=== PATIENT | male | born 1990 | race African-American/Black ===

== ENCOUNTER 2018-10-28 00:07 | Emergency (ER) | payer MEDICAID ==
[2018-10-28] MEDS ORDERED: NICOTINE 21 MG/24 HR PATCH TD ONE (01:03)
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
[2018-10-28] MEDS ORDERED: AMOXICILLIN/CLAVULANATE POT 875/125 MG TAB PO ONE (01:17)
[2018-10-28] MEDS ORDERED: LET GEL TOPICAL 1 EA SYR TP ONE (01:37)
[2018-10-28] MEDS: TDAP ADULT 0.5 ML INJ (BOOSTRIX) IM ONE ×2 (01:40→01:46)
[2018-10-28 02:42] VITALS: BP 124/69
== END 2018-10-28 02:40 | disposition home or self-care (01) ==
PROC: 0HQ0XZZ Repair Scalp Skin, External Approach (ICD-10-PCS; principal; 2018-10-28)
DX: S01.01XA Laceration without foreign body of scalp, initial encounter (principal); S01.302A Unspecified open wound of left ear, initial encounter; S09.8XXA Other specified injuries of head, initial encounter; M79.631 Pain in right forearm; Y04.8XXA Assault by other bodily force, initial encounter; Y92.9 Unspecified place or not applicable; Y93.9 Activity, unspecified; Y99.9 Unspecified external cause status

== ENCOUNTER 2018-11-22 05:26 | Emergency (ER) | payer MEDICAID ==
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
[2018-11-22] MEDS ORDERED: NS 1,000 ML IV ONE ×2 (05:44→05:50)
[2018-11-22] MEDS ORDERED: ONDANSETRON 4 MG/2 ML VIAL IVP ONE (05:44)
[2018-11-22 05:59] LABS: PLATELET COUNT 348 10^3/uL (150-400)
[2018-11-22] MEDS ORDERED: IOPAMIDOL (ISOVUE 370) 100 ML BTL IV ONE (06:20)
[2018-11-22 06:23] LABS: CREATINE KINASE 519 IU/L (0-224)
[2018-11-22] MEDS ORDERED: HYDROmorphONE/DILAUDID 2 MG/ML INJ ONE (06:28)
[2018-11-22] MEDS ORDERED: HYDROmorphONE/DILAUDID 2 MG/ML INJ IVP ONE (06:29)
[2018-11-22] MEDS ORDERED: LORazepam 2 MG/ML INJ IVP ONE (07:26)
[2018-11-22 08:50] VITALS: BP 112/75
== END 2018-11-22 08:49 | disposition home or self-care (01) ==
DX: R11.2 Nausea with vomiting, unspecified (principal); F14.10 Cocaine abuse, uncomplicated; M54.9 Dorsalgia, unspecified
CPT/HCPCS: 80305; 96374; G0480; J1170; J2060; J2405; Q9967